=== PATIENT | female | born 1975 | race Caucasian/White ===

== ENCOUNTER 2018-05-30 16:25 | Emergency (ER) | payer BC, SELFPAY ==
[2018-05-30 16:25] VITALS: BP 143/93; PULSE 97; RESP 18; TEMP 36.6; O2SAT 100; BMI 31.3
--- NOTE | 2018-05-30 16:40 | ED.VISSUMM ---
- ER Visit Summary Date of Service: 05/30/18 Chief Complaint: Dysuria [] History of Present Illness: The patient is a 42 F presents the emergency room with complaint of dysuria, urgency, and frequency that started last evening. Patient describes some lower abdominal discomfort. Patient's had mild nausea but no vomiting. Patient denies any blood in her stool or black tarry stool. Patient denies any pain in her back. Patient states that she is only had one other urinary tract infection in her life. [] Physical Examination: HEENT-PERRLA, EOMI. Cranial nerves II through XII grossly intact. TMs clear. Mucous membranes moist. No adenopathy. Cardiovascular-regular rate and rhythm without murmur or ectopy Lungs-clear to auscultation, chest wall stable without crepitus or subcu emphysema Abdomen-normoactive bowel sounds, soft, nontender, no rebound or rigidity, no peritoneal signs. Extremities-intact ?4, normal range of motion, normal pulses, atraumatic [] Test Results: [Urinalysis was positive for UTI] Emergency Department Course and Treatment: [Patient was started on Bactrim and Azo] Treatment Plan: [Patient will be treated with Bactrim and Pyridium.] Disposition: Discharged home in stable condition. Patient advised to follow-up with primary care physician 3-5 days. Patient to return if worsening pain, fever, vomiting, or condition should worsen anyway. [] Impression: Urinary tract infection [] This note was generated with [employer] dictation software. It may contain incorrect words, spelling, and punctuation that were not noted in review of the chart prior to signing ED Disposition - Plan for ED Patient: Chief Complaint: Complaint Referrals: Michael Lucas DO [Primary Care Provider] -
[2018-05-30 16:42] LABS: Mucous, Urine 0 SEEN /hpf (<or=2+)
[2018-05-30 16:50] LABS: Color, Urine Yellow (Yellow); Glucose, Dipstick Normal (Normal); Ketone-Dipstick Negative (Negative); Leukocyte Esterase-Dipstick 500 /ul (Negative); Nitrite-Dipstick Negative (Negative); Occult Blood-Urine 150 /ul (Negative); Protein-Dipstick 15 mg/dl (Negative); Specific Gravity, Urine 1.015 (1.002-1.030); Urine Bilirubin Dipstick Negative (Negative); Urine Clarity Cloudy (Clear); Urine Urobilinogen Normal (Normal)
[2018-05-30 17:00] LABS: Squamous Epithelial Cells - UA 0-5 SEEN /hpf (5-10)
--- NOTE | 2018-05-30 17:00 | ED.DEP ---
ED Disposition - Plan for ED Patient: Chief Complaint: Complaint Instructions: ED UTI Cystitis Female Prescriptions: Smz/Tmp Ds [Bactrim Ds] 1 tab PO BID #14 tab Phenazopyridine HCl [Pyridium] 200 mg PO TID #10 tab Referrals: Michael Lucas DO [Primary Care Provider] - 3-5 Days
[2018-05-30 17:06] LABS: Red Blood Cells-Urine 10-25 SEEN /hpf (0-5); White Blood Cells 25-50 SEEN /hpf (0-5)
[2018-05-30 17:08] LABS: Bacteria RARE /hpf (None Seen)
[2018-05-30 17:10] VITALS: BP 135/80; PULSE 90; RESP 14; O2SAT 98
[2018-05-30] MEDS: Phenazopyridine 95 MG Tablet 190 MG PO (17:16)
[2018-05-30] MEDS: Smz/Tmp Ds Tablet 1 TABLET PO (17:16)
== END 2018-05-30 17:21 | disposition home or self-care (01) ==
LOC: ED 17:19
PROVIDERS: Emergency Provider Emergency Medicine; Family Provider Student in an Organized Health Care Education/Training Program; PCP Student in an Organized Health Care Education/Training Program
DX: N39.0 Urinary tract infection, site not specified (principal)
CPT/HCPCS: 81001; 99282